=== PATIENT | male | born 1975 | race Two or more races ===

== ENCOUNTER 2024-10-05 14:39 | Emergency (ER) | payer OTHER ==
[~2024-10-05] VITALS: Ht 165.1 cm; Wt 77.6 kg
[2024-10-05] MEDS ORDERED: MORPHINE SULFATE 4 MG/ML VIAL IV STA (15:22)
[2024-10-05] MEDS ORDERED: MIDAZOLAM HCL/PF 5 MG/ML VIAL IV STA (15:23)
[2024-10-05] MEDS ORDERED: FLUMAZENIL 0.5 MG/5 ML ML IV STA (15:23)
[2024-10-05] MEDS ORDERED: MORPHINE SULFATE 4 MG/ML VIAL IV ONE (17:00)
[2024-10-05] MEDS ORDERED: MIDAZOLAM HCL/PF 5 MG/ML VIAL IV ONE (17:00)
== END 2024-10-05 19:51 | disposition home or self-care (01) ==
LOC: ER 14:39
DX: S43.085A Other dislocation of left shoulder joint, initial encounter (principal); X58.XXXA Exposure to other specified factors, initial encounter; Y93.89 Activity, other specified; Y92.832 Beach as the place of occurrence of the external cause; Y99.8 Other external cause status